=== PATIENT | male | born 1965 | race American Indian/Alaskan Native ===

== ENCOUNTER 2016-06-13 08:10 | Emergency (ER) | payer SELFPAY ==
[2016-06-13] MEDS ORDERED: ZITHROMAX PO ONE (10:33)
[2016-06-13] MEDS ORDERED: ROBITUSSIN DM PO ONE ×2 (10:34→10:40)
[2016-06-13] MEDS ORDERED: DUONEB 0.5 MG-3 MG/3 ML SOLN IH ONE (10:35)
--- NOTE | 2016-06-13 10:40 | Emergency Department Report ---
- General Chief Complaint: Upper Respiratory Infection Stated Complaint: RT SIDE PAIN/COUGH Time Seen by Provider: 06/13/16 09:28 Source: patient Mode of arrival: Ambulatory Limitations: No Limitations - Related Data Previous Rx's Medication Instructions Recorded Last Taken Type Amoxicillin/K Clav Tab [Augmentin 1 tab PO Q12HR #20 tab 11/29/15 Unknown Rx 875 mg] guaiFENesin/CODEINE [Robitussin AC] 10 ml PO QHS PRN #70 oral.liqd 11/29/15 Unknown Rx predniSONE [Deltasone] 50 mg PO QDAY #5 tab 11/29/15 Unknown Rx Allergies Allergy/AdvReac Type Severity Reaction Status Date / Time No Known Allergies Allergy Verified 11/29/15 10:47 ED Review of Systems ROS: Stated complaint: RT SIDE PAIN/COUGH Other details as noted in HPI ED Past Medical Hx - Past Medical History Previous Medical History?: Yes Hx Asthma: Yes (childhood) - Surgical History Past Surgical History?: Yes Additional Surgical History: hernia repair x 2 - Social History Smoking Status: Current Every Day Smoker Substance Use Type: None - Medications Home Medications: Home Medications Medication Instructions Recorded Confirmed Last Taken Type Amoxicillin/K Clav Tab [Augmentin 1 tab PO Q12HR #20 tab 11/29/15 Unknown Rx 875 mg] guaiFENesin/CODEINE [Robitussin AC] 10 ml PO QHS PRN #70 oral.liqd 11/29/15 Unknown Rx predniSONE [Deltasone] 50 mg PO QDAY #5 tab 11/29/15 Unknown Rx ED Physical Exam - General Limitations: No Limitations ED Course Vital Signs 06/13/16 08:17 Temperature 98.5 F Pulse Rate 69 Respiratory 20 Rate Blood Pressure 148/106 O2 Sat by Pulse 100 Oximetry Critical care attestation.: If time is entered above; I have spent that time in minutes in the direct care of this critically ill patient, excluding procedure time. ED Disposition Condition: Stable Referrals: PRIMARY CARE, [Primary Care Provider] - 3-5 Days
--- NOTE | 2016-06-13 11:03 | XRay Report ---
Chest 2 views: History: Worsening cough heavy smoker. Findings: Normal cardiomediastinal silhouette. Trachea is midline. No consolidation, pneumothorax or pleural effusion. Impression: No acute cardiopulmonary findings.
[2016-06-13 11:21] LABS: Eosinophils % (Auto) 1.6 % (0.0-4.3); Hematocrit 44.2 % (35.5-45.6); Hemoglobin 14.2 gm/dl (11.8-15.2); Mean Corpuscular HGB Conc 32 % (32-34); Mean Corpuscular Hemoglobin 29 pg (28-32); Mean Corpuscular Volume 89 fl (84-94); Platelet Count 263 K/mm3 (140-440); Red Blood Count 4.98 M/mm3 (3.65-5.03); Red Cell Distribution Width 14.1 % (13.2-15.2); White Blood Count 8.8 K/mm3 (4.5-11.0)
[2016-06-13 11:52] LABS: Anion Gap 15 mmol/L; BUN/Creatinine Ratio 11.42; Blood Urea Nitrogen 8 mg/dL (9-20); Calcium 8.7 mg/dL (8.4-10.2); Carbon Dioxide 23 mmol/L (22-30); Glucose 94 mg/dL (75-100); Potassium 4.2 mmol/L (3.6-5.0); Sodium 139 mmol/L (137-145)
--- NOTE | 2016-06-13 12:08 | Emergency Department Report ---
Entered by TOM JOHNSON, acting as scribe for AME RODRIGUEZ PA. - General Chief Complaint: Upper Respiratory Infection Stated Complaint: RT SIDE PAIN/COUGH Time Seen by Provider: 06/13/16 09:28 Source: patient Mode of arrival: Ambulatory Limitations: No Limitations - History of Present Illness Initial Comments: 51 year old male with PMHx asthma presents to the ED for evaluation of worsening persistent cough for 1 week. Patient reports associated night sweats and right lower posterior chest pain. Despite taking Robitussin and Mucinex, symptoms have persisted. Reports similar episode 2 months ago but denies Hx of pneumonia. Denies any travel outside of the country and known flu or sick contacts. 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 Endorse cigarette use. CHRIS. Complaint: cough Onset/Timin -: week(s) Consistency: constant Improves With: nothing Worsens With: nothing Context: other (no known sick contact, flu contact, or travel outside of the country) Associated Symptoms: cough, chest pain (right posterior chest pain. Denies anterior chest pain.), right sweats. denies: shortness of breath Treatments Prior to Arrival: "cold medicine" (Mucinex and Robitussin with no relief of symptoms) - Related Data Previous Rx's Medication Instructions Recorded Last Taken Type Amoxicillin/K Clav Tab [Augmentin 1 tab PO Q12HR #20 tab 11/29/15 Unknown Rx 875 mg] guaiFENesin/CODEINE [Robitussin AC] 10 ml PO QHS PRN #70 oral.liqd 11/29/15 Unknown Rx predniSONE [Deltasone] 50 mg PO QDAY #5 tab 11/29/15 Unknown Rx ALBUTEROL Inhaler [ProAir HFA 1 puff IH Q4H PRN #1 inha 06/13/16 Unknown Rx Inhaler] Azithromycin [Zithromax Z-SOULEYMANE] 250 mg PO QDAY #6 tablet 06/13/16 Unknown Rx Naproxen [Naproxen TAB] 250 mg PO BID PRN #20 tablet 06/13/16 Unknown Rx guaiFENesin DM [Robitussin Dm] 10 ml PO Q6HR PRN #1 bottle 06/13/16 Unknown Rx predniSONE [Deltasone] 40 mg PO QDAY #10 tab 06/13/16 Unknown Rx Allergies Allergy/AdvReac Type Severity Reaction Status Date / Time No Known Allergies Allergy Verified 11/29/15 10:47 ED Review of Systems Comment: All other systems reviewed and negative Constitutional: other (night sweats) Respiratory: cough. denies: shortness of breath Cardiovascular: chest pain (right posterior chest pain. No anterior chest pain.) ED Past Medical Hx - Past Medical History Previous Medical History?: Yes Hx Asthma: Yes (childhood) - Surgical History Past Surgical History?: Yes Additional Surgical History: hernia repair x 2 - Social History Smoking Status: Current Every Day Smoker Substance Use Type: None - Medications Home Medications: Home Medications Medication Instructions Recorded Confirmed Last Taken Type Amoxicillin/K Clav Tab [Augmentin 1 tab PO Q12HR #20 tab 11/29/15 Unknown Rx 875 mg] guaiFENesin/CODEINE [Robitussin AC] 10 ml PO QHS PRN #70 oral.liqd 11/29/15 Unknown Rx predniSONE [Deltasone] 50 mg PO QDAY #5 tab 11/29/15 Unknown Rx ALBUTEROL Inhaler [ProAir HFA 1 puff IH Q4H PRN #1 inha 06/13/16 Unknown Rx Inhaler] Azithromycin [Zithromax Z-SOULEYMANE] 250 mg PO QDAY #6 tablet 06/13/16 Unknown Rx Naproxen [Naproxen TAB] 250 mg PO BID PRN #20 tablet 06/13/16 Unknown Rx guaiFENesin DM [Robitussin Dm] 10 ml PO Q6HR PRN #1 bottle 06/13/16 Unknown Rx predniSONE [Deltasone] 40 mg PO QDAY #10 tab 06/13/16 Unknown Rx ED Physical Exam - General Limitations: No Limitations - Other Other exam information: General: Well nourished, in no distress. Oriented x 3, normal mood and affect. Ambulating without difficulty. Skin: Good turgor, no rash, unusual bruising or prominent lesions Hair: Normal texture and distribution. Nails: Normal color, no deformities HEENT: Head: Normocephalic, atraumatic, no visible masses, depressions, or scaring. Eyes: Conjunctiva clear, sclera non-icteric, EOM intact, PERRL, no exudates or hemorrhages Mouth: Mucous membranes moist, no mucosal lesions. Neck: Supple, without lesions, bruits, or adenopathy, thyroid non-enlarged and non-tender Heart: No cardiomegaly or thrills; regular rate and rhythm, no murmur or gallop Lungs: Rhonchi in right lower lung field. Abdomen: Bowel sounds normal, no tenderness, organomegaly, masses, or hernia Back: Spine normal without deformity or tenderness, no CVA tenderness Psychiatric: Oriented X3, intact recent and remote memory, judgment and insight , normal mood and affect. ED Course Vital Signs 06/13/16 06/13/16 08:17 10:48 Temperature 98.5 F Pulse Rate 69 Pulse Rate [ 74 Right Middle Lobe] Respiratory 20 Rate Respiratory 18 Rate [Right Middle Lobe] Blood Pressure 148/106 O2 Sat by Pulse 100 Oximetry ED Medical Decision Making - Lab Data Result diagrams: 06/13/16 10:48 06/13/16 10:48 - Medical Decision Making A/p: Acute bronchitis 1- albuterol inhaler, Z-Souleymane, short course prednisone, naproxen when necessary. Will cover patient empirically for community-acquired pneumonia/bronchitis patient is heavy smoker. PORT/PSI score low, outp pt reasonable 2- f/u with primary medical doctor ED Disposition Clinical Impression: Acute bronchitis Qualifiers: Bronchitis organism: unspecified organism Qualified Code(s): J20.9 - Acute bronchitis, unspecified Reactive airway disease Qualifiers: Asthma severity: mild intermittent Asthma complication type: uncomplicated Qualified Code(s): J45.20 - Mild intermittent asthma, uncomplicated Disposition: DISCHARGED TO HOME OR SELFCARE Is pt being admited?: No Does the pt Need Aspirin: No Condition: Stable Instructions: Acute Bronchitis (ED) Prescriptions: ALBUTEROL Inhaler [ProAir HFA Inhaler] 1 puff IH Q4H PRN #1 inha PRN Reason: Wheezing Azithromycin [Zithromax Z-SOULEYMANE] 250 mg PO QDAY #6 tablet guaiFENesin DM [Robitussin Dm] 10 ml PO Q6HR PRN #1 bottle PRN Reason: Cough Naproxen [Naproxen TAB] 250 mg PO BID PRN #20 tablet PRN Reason: Cough predniSONE [Deltasone] 40 mg PO QDAY #10 tab Referrals: GRACIELA HOWELL MD [Staff Physician] - 3-5 Days Forms: Work/School Release Form(ED) Time of Disposition: 12:05 This documentation as recorded by the scribeELIZABETH REBEKAH,accurately reflects the service I personally performed and the decisions made by ,AME RODRIGUEZ PA.
[2016-06-13 12:33] VITALS: BP 160/100
== END 2016-06-13 12:33 | disposition home or self-care (01) ==
LOC: ED 08:10
DX: J45.20 Mild intermittent asthma, uncomplicated (principal); J20.9 Acute bronchitis, unspecified; F17.200 Nicotine dependence, unspecified, uncomplicated
CPT/HCPCS: 36415; 71020; 80048; 82805; 85025

== ENCOUNTER 2016-08-21 12:33 | Emergency (ER) | payer SELFPAY ==
[2016-08-21 12:44] VITALS: BP 145/106
[2016-08-21] MEDS ORDERED: DELTASONE PO ONE (14:24)
[2016-08-21] MEDS ORDERED: NORVASC PO ONE (14:24)
[2016-08-21] MEDS ORDERED: PROVENTIL IH ONE (14:26)
--- NOTE | 2016-08-21 14:29 | Emergency Department Report ---
Entered by MIGUEL KANG, acting as scribe for FARHAT DUNCAN NP. - General Chief Complaint: Upper Respiratory Infection Stated Complaint: COUGH/BACK PAIN Source: patient Mode of arrival: Ambulatory Limitations: No Limitations - History of Present Illness Initial Comments: 51 y/o male presents to the ED c/o bronchitis that began two months ago and became worse today. Associated symptoms include cough, wheezing, rhinorrhea and back pain but he denies fever, chills, nausea and vomiting. Patient states he was seen at ED 06/13/16 for similar symptoms and he was diagnosed with bronchitis but is noncompliant with meds. No aggravating factors and no alleviating factors despite taking aspirin [employer]. Uses tobacco products. NKDA. ROSENBERG Complaint: other (Bronchitis) -: Sudden, month(s) (2 months became worse today) Severity: mild Consistency: constant Improves With: nothing Worsens With: nothing Context: other (recently moved to [place]) Associated Symptoms: other (cough, wheezing, rhinorrhea and back pain). denies : fever, chills, nausea, vomiting Treatments Prior to Arrival: Aspirin - Related Data Previous Rx's Medication Instructions Recorded Last Taken Type Amoxicillin/K Clav Tab [Augmentin 1 tab PO Q12HR #20 tab 11/29/15 Unknown Rx 875 mg] guaiFENesin/CODEINE [Robitussin AC] 10 ml PO QHS PRN #70 oral.liqd 11/29/15 Unknown Rx predniSONE [Deltasone] 50 mg PO QDAY #5 tab 11/29/15 Unknown Rx ALBUTEROL Inhaler [ProAir HFA 1 puff IH Q4H PRN #1 inha 06/13/16 Unknown Rx Inhaler] Azithromycin [Zithromax Z-TYRESE] 250 mg PO QDAY #6 tablet 06/13/16 Unknown Rx Naproxen [Naproxen TAB] 250 mg PO BID PRN #20 tablet 06/13/16 Unknown Rx amLODIPine [Norvasc] 5 mg PO DAILY #30 tab 06/13/16 Unknown Rx guaiFENesin DM [Robitussin Dm] 10 ml PO Q6HR PRN #1 bottle 06/13/16 Unknown Rx predniSONE [Deltasone] 40 mg PO QDAY #10 tab 06/13/16 Unknown Rx ALBUTEROL Inhaler [ProAir HFA 2 puff IH QID PRN #1 inhalation 08/21/16 Unknown Rx Inhaler] Azithromycin [Zithromax Z-TYRESE] 250 mg PO DAILY #6 tablet 08/21/16 Unknown Rx amLODIPine [Norvasc] 5 mg PO DAILY #90 tab 08/21/16 Unknown Rx predniSONE [Deltasone] 40 mg PO DAILY #5 tablet 08/21/16 Unknown Rx Allergies Allergy/AdvReac Type Severity Reaction Status Date / Time No Known Allergies Allergy Verified 08/21/16 12:38 ED Review of Systems Comment: All other systems reviewed and negative Constitutional: denies: chills, fever ENT: other (Rhinorrhea ) Respiratory: cough (with clear sputum), wheezing Gastrointestinal: denies: nausea, vomiting Musculoskeletal: back pain ED Past Medical Hx - Past Medical History Hx Hypertension: Yes (not taking meds) Hx Asthma: Yes (childhood) - Surgical History Additional Surgical History: hernia repair x 2 - Social History Smoking Status: Current Every Day Smoker Substance Use Type: Alcohol - Medications Home Medications: Home Medications Medication Instructions Recorded Confirmed Last Taken Type Amoxicillin/K Clav Tab [Augmentin 1 tab PO Q12HR #20 tab 11/29/15 Unknown Rx 875 mg] guaiFENesin/CODEINE [Robitussin AC] 10 ml PO QHS PRN #70 oral.liqd 11/29/15 Unknown Rx predniSONE [Deltasone] 50 mg PO QDAY #5 tab 11/29/15 Unknown Rx ALBUTEROL Inhaler [ProAir HFA 1 puff IH Q4H PRN #1 inha 06/13/16 Unknown Rx Inhaler] Azithromycin [Zithromax Z-TYRESE] 250 mg PO QDAY #6 tablet 06/13/16 Unknown Rx Naproxen [Naproxen TAB] 250 mg PO BID PRN #20 tablet 06/13/16 Unknown Rx amLODIPine [Norvasc] 5 mg PO DAILY #30 tab 06/13/16 Unknown Rx guaiFENesin DM [Robitussin Dm] 10 ml PO Q6HR PRN #1 bottle 06/13/16 Unknown Rx predniSONE [Deltasone] 40 mg PO QDAY #10 tab 06/13/16 Unknown Rx ALBUTEROL Inhaler [ProAir HFA 2 puff IH QID PRN #1 inhalation 08/21/16 Unknown Rx Inhaler] Azithromycin [Zithromax Z-TYRESE] 250 mg PO DAILY #6 tablet 08/21/16 Unknown Rx amLODIPine [Norvasc] 5 mg PO DAILY #90 tab 08/21/16 Unknown Rx predniSONE [Deltasone] 40 mg PO DAILY #5 tablet 08/21/16 Unknown Rx ED Physical Exam - General Limitations: No Limitations General appearance: alert, in no apparent distress - Head Head exam: Present: atraumatic, normocephalic - Eye Eye exam: Present: normal appearance, EOMI Pupils: Present: normal accommodation - ENT ENT exam: Present: normal exam - Neck Neck exam: Present: normal inspection, full ROM - Respiratory Respiratory exam: Present: normal lung sounds bilaterally, other (bronchitis non -compliant with medication). Absent: wheezes, rales, rhonchi, stridor, chest wall tenderness, accessory muscle use, decreased breath sounds, prolonged expiratory - Cardiovascular Cardiovascular Exam: Present: regular rate, normal rhythm, normal heart sounds, other (cough with clear sputum) - GI/Abdominal GI/Abdominal exam: Present: soft, normal bowel sounds. Absent: tenderness, guarding, rebound - Extremities Exam Extremities exam: Present: normal inspection, full ROM - Back Exam Back exam: Present: normal inspection, full ROM - Neurological Exam Neurological exam: Present: alert, oriented X3 - Psychiatric Psychiatric exam: Present: normal affect, normal mood - Skin Skin exam: Present: warm, dry, intact ED Course Vital Signs 08/21/16 12:40 Temperature 99.4 F Pulse Rate 62 Respiratory 17 Rate Blood Pressure 145/106 O2 Sat by Pulse 99 Oximetry ED Medical Decision Making - Medical Decision Making pt is a 51 y/o aam with hx bronchitis and 40 pack yr smoker who returns for 3rd time in as many months for noc wheezing and cough productive clear , pt advises unable to afford medications so he did not fill rx for prednisone and albuterol , exam today pt appears well nad , Nose: no obstruction bilat turbinate edema no obstruction clear post nasal drip , phayrnx: moderate erythema no exudate no lesions uvuila midline airway is patent, lungs clear bilat all lobes no wheezing , cv: S1 and S2 no MRG no edema no pnd, pt endorses noc fever no fever noted at this time, plan rx medications as previously ordered, pt will reprort to [facility] as he has connect to [facility] for $4.00 rx which he can afford, will rx amlodipine as previously ordered pt will leaf size picker from [facility] as it is free of charge pt will affiliate with [facility] for pcp affiliation , pt verbalized understanding and agreement with discharge plan is a /o x 3 ambulatory gait steady no sob no cp no wheezing at this time. htn episode pt has not take amlodipine 5 mg po today pt denies headache no dizziness no cp no sob no light headedness pt is ambulatory gait steady with nad. ED Disposition Clinical Impression: Acute bronchitis Disposition: TO HOME OR SELFCARE Is pt being admited?: No Does the pt Need Aspirin: No Condition: Good Instructions: Acute Bronchitis (ED) Prescriptions: ALBUTEROL Inhaler [ProAir HFA Inhaler] 2 puff IH QID PRN #1 inhalation PRN Reason: Shortness Of Breath Azithromycin [Zithromax Z-TYRESE] 250 mg PO DAILY #6 tablet predniSONE [Deltasone] 40 mg PO DAILY #5 tablet Referrals: PRIMARY CARE, [Primary Care Provider] - 3-5 Days Forms: Work/School Release Form(ED) Time of Disposition: 14:28 This documentation as recorded by the PEARL plummer ELIZABETH,accurately reflects the service I personally performed and the decisions made by me, FARHAT DUNCAN NP.
== END 2016-08-21 14:55 | disposition home or self-care (01) ==
LOC: ED 12:33
DX: J20.9 Acute bronchitis, unspecified (principal); I10 Essential (primary) hypertension; J45.909 Unspecified asthma, uncomplicated; M54.9 Dorsalgia, unspecified; F17.200 Nicotine dependence, unspecified, uncomplicated
CPT/HCPCS: 99283; J7512

== ENCOUNTER 2018-06-26 14:22 | Emergency (ER) | payer OTHER ==
[2018-06-26 15:37] LABS: Basophils % (Auto) 0.8 % (0.0-1.8); Eosinophils # (Auto) 0.1 K/mm3 (0.0-0.4); Hemoglobin 14.4 gm/dl (11.8-15.2); Lymphocytes # (Auto) 1.9 K/mm3 (1.2-5.4); Lymphocytes % (Auto) 32.9 % (13.4-35.0); Mean Corpuscular HGB Conc 34 % (32-34); Mean Corpuscular Volume 90 fl (84-94); Monocytes # (Auto) 0.5 K/mm3 (0.0-0.8); Monocytes % (Auto) 9.1 % (0.0-7.3); Platelet Count 237 K/mm3 (140-440); Red Cell Distribution Width 14.1 % (13.2-15.2)
[2018-06-26 15:46] LABS: Bilirubin,Urine NEG (Negative); Blood,Urine NEG (Negative); Color,Urine Yellow (Yellow); Mucus,Urine FEW /HPF; Protein,Urine <15 mg/dL mg/dL (Negative)
[2018-06-26 15:46] LABS: BUN/Creatinine Ratio 12; Blood Urea Nitrogen 13 mg/dL (9-20); Calcium 9.1 mg/dL (8.4-10.2); Hemolysis Index 6
[2018-06-26 15:50] LABS: Amphetamine Screen,Urine PRESUMPTIVE NEGATIVE; Benzodiazepines Screen,Urine PRESUMPTIVE NEGATIVE; Methadone Screen,Urine PRESUMPTIVE NEGATIVE; Opiate Screen,Urine PRESUMPTIVE NEGATIVE
[2018-06-26 16:05] LABS: Cannabinoid Screen,Urine PRESUMPTIVE POSITIVE; Cocaine Screen,Urine PRESUMPTIVE POSITIVE
--- NOTE | 2018-06-26 19:49 | Emergency Department Report ---
Chief Complaint: Alcohol Stated Complaint: DRUG TREATMENT EVALUATION Time Seen by Provider: 06/26/18 19:48 - HPI History of Present Illness: polysub use etoh/ cocaine/ thc last use last pm no si no hi requesting detox to [facility] for eval mse completed - Exam Vital Signs: Vital Signs 06/26/18 15:10 Temperature 98.3 F Pulse Rate 79 Respiratory 98 H Rate Blood Pressure 123/86 MSE screening note: Focused history and physical exam performed. Due to findings the following was ordered: ED Medical Decision Making - Lab Data Result diagrams: 06/26/18 15:16 06/26/18 15:16 ED Disposition for MSE Condition: Stable Referrals: JEFF COLLAZO MD [Primary Care Provider] - 3-5 Days
--- NOTE | 2018-06-26 20:53 | Emergency Department Report ---
HPI - General Chief Complaint: Alcohol Time Seen by Provider: 06/26/18 19:48 - HPI HPI: 53 yo AA Luis presents to the ED with the request for detox and rehab from crack cocaine use. He last used last night. He denies any physical complaints at this time or signs of withdrawal. He says that he has attempted to do rehabilitation and detox one time before when he was in [place]. He just moved here. He sometimes will occasionally use marijuana and drink alcohol but his main complaint is the crack cocaine use. ED Past Medical Hx - Past Medical History Hx Hypertension: Yes (not taking meds) Hx Asthma: Yes (childhood) - Surgical History Additional Surgical History: hernia repair x 2 - Social History Smoking Status: Never Smoker Substance Use Type: Alcohol, Cocaine, Marijuana - Medications Home Medications: Home Medications Medication Instructions Recorded Confirmed Last Taken Type Amoxicillin/K Clav Tab [Augmentin 1 tab PO Q12HR #20 tab 11/29/15 Unknown Rx 875 mg] guaiFENesin/CODEINE [Robitussin AC] 10 ml PO QHS PRN #70 oral.liqd 11/29/15 Unknown Rx predniSONE [Deltasone] 50 mg PO QDAY #5 tab 11/29/15 Unknown Rx ALBUTEROL Inhaler (OR & NICU) 1 puff IH Q4H PRN #1 inha 06/13/16 Unknown Rx [ProAir HFA Inhaler] Azithromycin [Zithromax Z-TYRESE] 250 mg PO QDAY #6 tablet 06/13/16 Unknown Rx Naproxen [Naproxen TAB] 250 mg PO BID PRN #20 tablet 06/13/16 Unknown Rx amLODIPine [Norvasc] 5 mg PO DAILY #30 tab 06/13/16 Unknown Rx guaiFENesin DM [Robitussin Dm] 10 ml PO Q6HR PRN #1 bottle 06/13/16 Unknown Rx predniSONE [Deltasone] 40 mg PO QDAY #10 tab 06/13/16 Unknown Rx ALBUTEROL Inhaler (OR & NICU) 2 puff IH QID PRN #1 inhalation 08/21/16 Unknown Rx [ProAir HFA Inhaler] Azithromycin [Zithromax Z-TYRESE] 250 mg PO DAILY #6 tablet 08/21/16 Unknown Rx amLODIPine [Norvasc] 5 mg PO DAILY #90 tab 08/21/16 Unknown Rx predniSONE [Deltasone] 40 mg PO DAILY #5 tablet 08/21/16 Unknown Rx ED Review of Systems ROS: Stated complaint: DRUG TREATMENT EVALUATION Other details as noted in HPI Comment: All other systems reviewed and negative Constitutional: denies: chills, fever Eyes: denies: eye pain, vision change ENT: denies: ear pain, throat pain Respiratory: denies: cough, shortness of breath Cardiovascular: denies: chest pain, palpitations Gastrointestinal: denies: abdominal pain, vomiting Genitourinary: denies: dysuria, discharge Musculoskeletal: denies: back pain, arthralgia Skin: denies: rash, lesions Neurological: denies: headache, weakness Physical Exam - Physical Exam Vital Signs: Vital Signs 06/26/18 15:10 Temperature 98.3 F Pulse Rate 79 Respiratory 98 H Rate Blood Pressure 123/86 Physical Exam: GENERAL: The patient is well-developed well-nourished. HEENT: Normocephalic. Atraumatic. Patient has moist mucous membranes. EYES: Extraocular motions are intact. NECK: Supple. Trachea is midline. CHEST/LUNGS: Clear to auscultation. There is no respiratory distress noted. HEART/CARDIOVASCULAR: Regular. There is no tachycardia. There is no obvious murmur. ABDOMEN: There is no abdominal distention. SKIN: Skin is warm and dry. NEURO: The patient is awake, alert, and oriented. The patient is cooperative. The patient has no focal neurologic deficits. The patient has normal speech. MUSCULOSKELETAL: There is no tenderness or deformity. There is no limitation range of motion. There is no evidence of acute injury. ED Course Vital Signs 06/26/18 15:10 Temperature 98.3 F Pulse Rate 79 Respiratory 98 H Rate Blood Pressure 123/86 ED Medical Decision Making - Lab Data Result diagrams: 06/26/18 15:16 06/26/18 15:16 - Medical Decision Making This patient presents to the emergency department for assistance with detox and rehabilitation from crack cocaine use/abuse. He does not appear currently in toxicated. Urine drug screen is positive for cocaine and marijuana. Negative for blood alcohol level. The rest of his labs are unremarkable. He has no physical complaints at this time and no signs of any withdrawal symptoms. Vital signs stable throughout his ED course. He was seen by the psychiatric administrator of home health who agrees that he does not appear to meet criteria for inpatient psychiatric treatment and does not require a 1013. He will be referred to [facility]. - Differential Diagnosis substance abuse, withdrawal Critical Care Time: No Critical care attestation.: If time is entered above; I have spent that time in minutes in the direct care of this critically ill patient, excluding procedure time. ED Disposition Clinical Impression: Medical clearance for psychiatric admission, Crack cocaine use Disposition: DC-01 TO HOME OR SELFCARE Is pt being admited?: No Condition: Stable Instructions: Cocaine Abuse (ED) Additional Instructions: Please follow up as soon as possible with [facility], the referral that you have been given by the psychiatric administrator of home health. I am also giving you a referral for the [facility] facility. Return to the emergency Department with any worsening of your symptoms or any acute distress. Referrals: [facility] [Outside] - [place]
[2018-06-28 18:00] VITALS: BP 138/65
== END 2018-06-26 21:22 | disposition home or self-care (01) ==
LOC: ED 14:22
DX: F14.90 Cocaine use, unspecified, uncomplicated (principal); I10 Essential (primary) hypertension; J45.909 Unspecified asthma, uncomplicated; F12.10 Cannabis abuse, uncomplicated
CPT/HCPCS: 36415; 80048; 80307; 81001; 85025; 99284; G0480; 80320

== ENCOUNTER 2018-09-30 11:11 | Emergency (ER) | payer SELFPAY ==
[2018-09-30 11:24] VITALS: BP 143/100
== END 2018-09-30 13:14 | disposition left against medical advice (07) ==
LOC: ED 11:11
DX: I10 Essential (primary) hypertension (principal); Z53.21 Procedure and treatment not carried out due to patient leaving prior to being seen by health care provider

== ENCOUNTER 2019-06-03 02:54 | Emergency (ER) | payer SELFPAY ==
[2019-06-03 03:09] VITALS: BP 152/103
[2019-06-03] MEDS ORDERED: predniSONE 20 MG TAB PO ONE (07:35)
[2019-06-03] MEDS ORDERED: PENICILLIN G BENZATHINE 1.2 MILLION UNIT/2 ML INJ IM ONE (07:35)
--- NOTE | 2019-06-03 07:43 | Emergency Department Report ---
ED ENT HPI - General Chief complaint: Sore Throat Stated complaint: SORE THROAT Time Seen by Provider: 06/03/19 07:21 Source: patient Mode of arrival: Ambulatory Limitations: No Limitations - History of Present Illness Initial comments: Patient is a 54-year-old male who presents to ED complaining of throat pain 3 days. Patient describes pain as throbbing in nature, 8 out of 10 intensity, nonradiating, localized to his throat. Admits pain with swallowing and eating. Patient admits reduced appetite due to throat pain. Patient admits fever and states that he has been taking outsource [place] cold with no relief Patient denies nausea/vomiting/abdominal pain/shortness of breath/chest pain/headache. t complaint: sore throat Severity: moderate Severity scale (0 -10): 8 Quality: aching - Related Data Previous Rx's Medication Instructions Recorded Last Taken Type Amoxicillin/K Clav Tab [Augmentin 1 tab PO Q12HR #20 tab 11/29/15 Unknown Rx 875 mg] guaiFENesin/CODEINE [Robitussin AC] 10 ml PO QHS PRN #70 oral.liqd 11/29/15 Unknown Rx predniSONE [Deltasone] 50 mg PO QDAY #5 tab 11/29/15 Unknown Rx Albuterol INH(or & Nicu Only) 1 puff IH Q4H PRN #1 inha 06/13/16 Unknown Rx [ProAir HFA Inhaler] Azithromycin [Zithromax Z-TYRESE] 250 mg PO QDAY #6 tablet 06/13/16 Unknown Rx Naproxen [Naproxen TAB] 250 mg PO BID PRN #20 tablet 06/13/16 Unknown Rx amLODIPine 5 mg PO DAILY #30 tab 06/13/16 Unknown Rx guaiFENesin DM [Robitussin Dm] 10 ml PO Q6HR PRN #1 bottle 06/13/16 Unknown Rx predniSONE [Deltasone] 40 mg PO QDAY #10 tab 06/13/16 Unknown Rx Albuterol INH(or & Nicu Only) 2 puff IH QID PRN #1 inhalation 08/21/16 Unknown Rx [ProAir HFA Inhaler] Azithromycin [Zithromax Z-TYRESE] 250 mg PO DAILY #6 tablet 08/21/16 Unknown Rx amLODIPine 5 mg PO DAILY #90 tab 08/21/16 Unknown Rx predniSONE [Deltasone] 40 mg PO DAILY #5 tablet 08/21/16 Unknown Rx Ibuprofen [Motrin 800 MG tab] 800 mg PO Q8HR PRN #30 tablet 06/03/19 Unknown Rx Nystas/Diphen/Xyl Visc/Mylanta 15 ml MM Q6H PRN #120 ml 06/03/19 Unknown Rx [Magic Mouthwash] Allergies Allergy/AdvReac Type Severity Reaction Status Date / Time No Known Allergies Allergy Verified 09/30/18 11:12 ED Dental HPI - General Chief complaint: Sore Throat Stated complaint: SORE THROAT Time Seen by Provider: 06/03/19 07:21 Source: patient Mode of arrival: Ambulatory Limitations: No Limitations - Related Data Previous Rx's Medication Instructions Recorded Last Taken Type Amoxicillin/K Clav Tab [Augmentin 1 tab PO Q12HR #20 tab 11/29/15 Unknown Rx 875 mg] guaiFENesin/CODEINE [Robitussin AC] 10 ml PO QHS PRN #70 oral.liqd 11/29/15 Unknown Rx predniSONE [Deltasone] 50 mg PO QDAY #5 tab 11/29/15 Unknown Rx Albuterol INH(or & Nicu Only) 1 puff IH Q4H PRN #1 inha 06/13/16 Unknown Rx [ProAir HFA Inhaler] Azithromycin [Zithromax Z-TYRESE] 250 mg PO QDAY #6 tablet 06/13/16 Unknown Rx Naproxen [Naproxen TAB] 250 mg PO BID PRN #20 tablet 06/13/16 Unknown Rx amLODIPine 5 mg PO DAILY #30 tab 06/13/16 Unknown Rx guaiFENesin DM [Robitussin Dm] 10 ml PO Q6HR PRN #1 bottle 06/13/16 Unknown Rx predniSONE [Deltasone] 40 mg PO QDAY #10 tab 06/13/16 Unknown Rx Albuterol INH(or & Nicu Only) 2 puff IH QID PRN #1 inhalation 08/21/16 Unknown Rx [ProAir HFA Inhaler] Azithromycin [Zithromax Z-TYRESE] 250 mg PO DAILY #6 tablet 08/21/16 Unknown Rx amLODIPine 5 mg PO DAILY #90 tab 08/21/16 Unknown Rx predniSONE [Deltasone] 40 mg PO DAILY #5 tablet 08/21/16 Unknown Rx Ibuprofen [Motrin 800 MG tab] 800 mg PO Q8HR PRN #30 tablet 06/03/19 Unknown Rx Nystas/Diphen/Xyl Visc/Mylanta 15 ml MM Q6H PRN #120 ml 06/03/19 Unknown Rx [Magic Mouthwash] Allergies Allergy/AdvReac Type Severity Reaction Status Date / Time No Known Allergies Allergy Verified 09/30/18 11:12 ED Review of Systems ROS: Stated complaint: SORE THROAT Other details as noted in HPI Comment: All other systems reviewed and negative ED Past Medical Hx - Past Medical History Previous Medical History?: Yes Hx Hypertension: Yes (not taking meds) Hx Asthma: Yes (childhood) - Surgical History Past Surgical History?: Yes Additional Surgical History: hernia repair x 2 - Social History Smoking Status: Current Every Day Smoker Substance Use Type: None - Medications Home Medications: Home Medications Medication Instructions Recorded Confirmed Last Taken Type Amoxicillin/K Clav Tab [Augmentin 1 tab PO Q12HR #20 tab 11/29/15 Unknown Rx 875 mg] guaiFENesin/CODEINE [Robitussin AC] 10 ml PO QHS PRN #70 oral.liqd 11/29/15 Unknown Rx predniSONE [Deltasone] 50 mg PO QDAY #5 tab 11/29/15 Unknown Rx Albuterol INH(or & Nicu Only) 1 puff IH Q4H PRN #1 inha 06/13/16 Unknown Rx [ProAir HFA Inhaler] Azithromycin [Zithromax Z-TYRESE] 250 mg PO QDAY #6 tablet 06/13/16 Unknown Rx Naproxen [Naproxen TAB] 250 mg PO BID PRN #20 tablet 06/13/16 Unknown Rx amLODIPine 5 mg PO DAILY #30 tab 06/13/16 Unknown Rx guaiFENesin DM [Robitussin Dm] 10 ml PO Q6HR PRN #1 bottle 06/13/16 Unknown Rx predniSONE [Deltasone] 40 mg PO QDAY #10 tab 06/13/16 Unknown Rx Albuterol INH(or & Nicu Only) 2 puff IH QID PRN #1 inhalation 08/21/16 Unknown Rx [ProAir HFA Inhaler] Azithromycin [Zithromax Z-TYRESE] 250 mg PO DAILY #6 tablet 08/21/16 Unknown Rx amLODIPine 5 mg PO DAILY #90 tab 08/21/16 Unknown Rx predniSONE [Deltasone] 40 mg PO DAILY #5 tablet 08/21/16 Unknown Rx Ibuprofen [Motrin 800 MG tab] 800 mg PO Q8HR PRN #30 tablet 06/03/19 Unknown Rx Nystas/Diphen/Xyl Visc/Mylanta 15 ml MM Q6H PRN #120 ml 06/03/19 Unknown Rx [Magic Mouthwash] ED Physical Exam - General Limitations: No Limitations General appearance: alert, in no apparent distress - Head Head exam: Present: atraumatic, normocephalic - Eye Eye exam: Present: normal appearance - ENT ENT exam: Present: mucous membranes moist - Expanded ENT Exam Expanded Mouth exam: Present: normal external inspection Teeth exam: Present: normal inspection Throat exam: Positive: tonsillar erythema, tonsillomegaly, tonsillar exudate - Neck Neck exam: Present: normal inspection, full ROM, lymphadenopathy. Absent: tenderness - Respiratory Respiratory exam: Present: normal lung sounds bilaterally. Absent: respiratory distress - Cardiovascular Cardiovascular Exam: Present: regular rate, normal rhythm. Absent: systolic murmur, diastolic murmur, rubs, gallop - GI/Abdominal GI/Abdominal exam: Present: soft, normal bowel sounds - Rectal Rectal exam: Present: deferred - Extremities Exam Extremities exam: Present: normal inspection - Back Exam Back exam: Present: normal inspection - Neurological Exam Neurological exam: Present: alert, oriented X3 - Psychiatric Psychiatric exam: Present: normal affect, normal mood - Skin Skin exam: Present: warm, dry, intact, normal color. Absent: rash ED Course Vital Signs 06/03/19 03:07 Temperature 100.7 F H Pulse Rate 77 Respiratory 20 Rate Blood Pressure 152/103 O2 Sat by Pulse 96 Oximetry ED Medical Decision Making - Medical Decision Making 54-year-old male presents with strep pharyngitis. ED course: Rapid strep tests ordered rapid strep test positive Patient received 1 dose of Tylenol, 1.2 million units of penicillin, 60 mg of prednisone. Fever responsive to one dose of Tylenol. Vital signs stable patient is in no acute or respiratory distress. Discussed findings with patient about the positive strep. Discussed treatment in ED with patient Discussed the patient that strep throat is contagious and to limit sharing spoons and such. Discussed with patient follow-up with primary care physician. Patient verbally states he understands and will comply to follow-up. Critical care attestation.: If time is entered above; I have spent that time in minutes in the direct care of this critically ill patient, excluding procedure time. ED Disposition Clinical Impression: Streptococcal pharyngitis, Acute bacterial tonsillitis Disposition: TO HOME OR SELFCARE Is pt being admited?: No Does the pt Need Aspirin: No Condition: Stable Instructions: Strep Throat (ED), Tonsillitis (ED) Additional Instructions: Make sure to follow up with the primary care physician as discussed. Take all your medications as you've been prescribed. If you have any worsening symptoms or develop new symptoms please return to ED immediately. Referrals: PRIMARY CARE, [Primary Care Provider] - 3-5 Days [facility] [Outside] - 3-5 Days [facility] [Outside] - 3-5 Days Forms: Work/School Release Form(ED) Time of Disposition: 07:45
== END 2019-06-03 08:39 | disposition home or self-care (01) ==
LOC: ED 02:54
DX: J02.0 Streptococcal pharyngitis (principal); I10 Essential (primary) hypertension; J45.909 Unspecified asthma, uncomplicated; F17.200 Nicotine dependence, unspecified, uncomplicated; Z79.899 Other long term (current) drug therapy; Z98.890 Other specified postprocedural states
CPT/HCPCS: 87430; 96372; 99283; J0561; J7512

== ENCOUNTER 2020-06-14 09:05 | Emergency (ER) | payer SELFPAY ==
[2020-06-14 09:12] VITALS: BP 138/91
--- NOTE | 2020-06-14 12:08 | XRay Report ---
XR chest routine 2V INDICATION / CLINICAL INFORMATION: sob and cp. COMPARISON: 03/03/2018 FINDINGS: SUPPORT DEVICES: None. HEART /PULMONARY VASCULATURE: No significant abnormality. LUNGS / PLEURA: No significant pulmonary or pleural abnormality. No pneumothorax. ADDITIONAL FINDINGS: No significant additional findings. IMPRESSION: 1. No acute findings. Signer Name: Kalia Sandoval MD Signed: 06/14/2020 12:04 PM Workstation Name: [id number]
--- NOTE | 2020-06-14 12:50 | Emergency Department Report ---
ED General Adult HPI - General Chief complaint: Upper Respiratory Infection Stated complaint: HEAD COLD Time Seen by Provider: 06/14/20 10:04 Source: patient Mode of arrival: Ambulatory Limitations: No Limitations - History of Present Illness Initial comments: 55-year-old -[place] male avid tobacco smoker presents emerged department complaining of a couple day history of cough congestion coryza resulting in occasional mucus production and coryza. Was at work coughing on the job was advised to come to the emergency department to get evaluated. Reports no hemoptysis, no hematemesis hematochezia, no fever, chills, sweats. No diarrhea no nausea, no vomiting. Reports no known contact with a -: Gradual Radiation: non-radiation Consistency: constant Improves with: none Worsens with: none Associated Symptoms: denies other symptoms Treatments Prior to Arrival: none - Related Data Previous Rx's Medication Instructions Recorded Last Taken Type Amoxicillin/K Clav Tab [Augmentin 1 tab PO Q12HR #20 tab 11/29/15 Unknown Rx 875 mg] guaiFENesin/CODEINE [Robitussin AC] 10 ml PO QHS PRN #70 oral.liqd 11/29/15 Unk nown Rx predniSONE [Deltasone] 50 mg PO QDAY #5 tab 11/29/15 Unknown Rx Albuterol Mdi (or & Nicu Only) 1 puff IH Q4H PRN #1 inha 06/13/16 Unknown Rx [ProAir HFA Inhaler] Azithromycin [Zithromax Z-TYRESE] 250 mg PO QDAY #6 tablet 06/13/16 Unknown Rx Naproxen [Naproxen TAB] 250 mg PO BID PRN #20 tablet 06/13/16 Unknown Rx amLODIPine 5 mg PO DAILY #30 tab 06/13/16 Unknown Rx guaiFENesin DM [Robitussin Dm] 10 ml PO Q6HR PRN #1 bottle 06/13/16 Unknown Rx predniSONE [Deltasone] 40 mg PO QDAY #10 tab 06/13/16 Unknown Rx Albuterol Mdi (or & Nicu Only) 2 puff IH QID PRN #1 inhalation 08/21/16 Unknown Rx [ProAir HFA Inhaler] Azithromycin [Zithromax Z-TYRESE] 250 mg PO DAILY #6 tablet 08/21/16 Unknown Rx amLODIPine 5 mg PO DAILY #90 tab 08/21/16 Unknown Rx predniSONE [Deltasone] 40 mg PO DAILY #5 tablet 08/21/16 Unknown Rx Ibuprofen [Motrin 800 MG tab] 800 mg PO Q8HR PRN #30 tablet 06/03/19 Unknown Rx Nystas/Diphen/Xyl Visc/Mylanta 15 ml MM Q6H PRN #120 ml 06/03/19 Unknown Rx [Magic Mouthwash] Albuterol Mdi (or & Nicu Only) 1 puff IH QID PRN #8.5 gram 06/14/20 Unknown Rx [ProAir HFA Inhaler] Benzonatate [Tessalon Perles] 100 mg PO Q8HR #14 capsule 06/14/20 Unknown Rx Allergies Allergy/AdvReac Type Severity Reaction Status Date / Time No Known Allergies Allergy Verified 09/30/18 11:12 ED Review of Systems ROS: Stated complaint: HEAD COLD Other details as noted in HPI Comment: All other systems reviewed and negative ED Past Medical Hx - Past Medical History Previous Medical History?: Yes Hx Hypertension: Yes Hx Asthma: Yes (childhood) - Surgical History Past Surgical History?: Yes Additional Surgical History: hernia repair x 2 - Social History Smoking Status: Current Every Day Smoker Substance Use Type: None - Medications Home Medications: Home Medications Medication Instructions Recorded Confirmed Last Taken Type Amoxicillin/K Clav Tab [Augmentin 1 tab PO Q12HR #20 tab 11/29/15 Unknown Rx 875 mg] guaiFENesin/CODEINE [Robitussin AC] 10 ml PO QHS PRN #70 oral.liqd 11/29/15 Unknown Rx predniSONE [Deltasone] 50 mg PO QDAY #5 tab 11/29/15 Unknown Rx Albuterol Mdi (or & Nicu Only) 1 puff IH Q4H PRN #1 inha 06/13/16 Unknown Rx [ProAir HFA Inhaler] Azithromycin [Zithromax Z-TYRESE] 250 mg PO QDAY #6 tablet 06/13/16 Unknown Rx Naproxen [Naproxen TAB] 250 mg PO BID PRN #20 tablet 06/13/16 Unknown Rx amLODIPine 5 mg PO DAILY #30 tab 06/13/16 Unknown Rx guaiFENesin DM [Robitussin Dm] 10 ml PO Q6HR PRN #1 bottle 06/13/16 Unknown Rx predniSONE [Deltasone] 40 mg PO QDAY #10 tab 06/13/16 Unknown Rx Albuterol Mdi (or & Nicu Only) 2 puff IH QID PRN #1 inhalation 08/21/16 Unknown Rx [ProAir HFA Inhaler] Azithromycin [Zithromax Z-TYRESE] 250 mg PO DAILY #6 tablet 08/21/16 Unknown Rx amLODIPine 5 mg PO DAILY #90 tab 08/21/16 Unknown Rx predniSONE [Deltasone] 40 mg PO DAILY #5 tablet 08/21/16 Unknown Rx Ibuprofen [Motrin 800 MG tab] 800 mg PO Q8HR PRN #30 tablet 06/03/19 Unknown Rx Nystas/Diphen/Xyl Visc/Mylanta 15 ml MM Q6H PRN #120 ml 06/03/19 Unknown Rx [Magic Mouthwash] Albuterol Mdi (or & Nicu Only) 1 puff IH QID PRN #8.5 gram 06/14/20 Unknown Rx [ProAir HFA Inhaler] Benzonatate [Tessalon Perles] 100 mg PO Q8HR #14 capsule 06/14/20 Unknown Rx ED Physical Exam - General Limitations: No Limitations General appearance: alert, in no apparent distress - Head Head exam: Present: atraumatic, normocephalic - Eye Eye exam: Present: normal appearance, PERRL, EOMI Pupils: Present: normal accommodation - ENT ENT exam: Present: normal exam, mucous membranes moist - Neck Neck exam: Present: normal inspection, full ROM - Respiratory Respiratory exam: Present: normal lung sounds bilaterally, rhonchi (To the left lower lobe.). Absent: respiratory distress, wheezes, rales - Cardiovascular Cardiovascular Exam: Present: regular rate, normal rhythm. Absent: bradycardia, tachycardia, systolic murmur, diastolic murmur, rubs, gallop - GI/Abdominal GI/Abdominal exam: Present: soft, normal bowel sounds - Rectal Rectal exam: Present: deferred - Extremities Exam Extremities exam: Present: normal inspection, normal capillary refill - Back Exam Back exam: Present: normal inspection. Absent: CVA tenderness (R), CVA tenderness (L) - Neurological Exam Neurological exam: Present: alert, oriented X3, CN II-XII intact - Psychiatric Psychiatric exam: Present: normal affect, normal mood. Absent: agitated, anxious - Skin Skin exam: Present: warm, dry, intact, normal color. Absent: rash, cyanosis, diaphoretic ED Course Vital Signs 06/14/20 09:08 Temperature 98.4 F Pulse Rate 72 Respiratory 16 Rate Blood Pressure 138/91 O2 Sat by Pulse 98 Oximetry ED Medical Decision Making - Radiology Data Radiology results: report reviewed [address] [place] [address] XRay Report Signed Patient: GASTON HENSLEY MR#: [id number] : 1965 Acct:[id number] Age/Sex: 55 / M ADM Date: 06/14/20 Loc: ED Attending Dr: Ordering Physician: MICHELA VALADEZ Date of Service: 06/14/20 Procedure(s): XR chest routine 2V Accession Number(s): [id number] cc: MICHELA VALADEZ Fluoro Time In Minutes: XR chest routine 2V INDICATION / CLINICAL INFORMATION: sob and cp. COMPARISON: 03/03/2018 FINDINGS: SUPPORT DEVICES: None. HEART /PULMONARY VASCULATURE: No significant abnormality. LUNGS / PLEURA: No significant pulmonary or pleural abnormality. No pneumothorax. ADDITIONAL FINDINGS: No significant additional findings. IMPRESSION: 1. No acute findings. Signer Name: Marcella Sandoval MD Signed: 06/14/2020 12:04 PM Workstation Name: [id number] Transcribed By: JADIEL Dictated By: MARCELLA SANDOVAL MD Electronically Authenticated By: MARCELLA SANDOVAL MD Signed Date/Time: 06/14/20 1204 DD/ 1203 TD/TT: Print Cancel - Medical Decision Making This patient presents with acute cough, most consistent with bronchitis. Differential diagnosis includes pneumonia, bronchitis, asthma. Presentation not consistent with acute bacterial pneumonia, influenza, asthma, transient airway hyperresponsiveness. This patient presents with symptoms suspicious for likely viral upper respiratory tract infection. Differential includes bacterial pneumonia, sinusitis, allergic rhinitis,. Do not suspect underlying Cardiopulmonary process. I considered but think unlikely dangerous cause of this patient symptoms to include acute coronary syndrome, CHF or COPD exacerbations, pneumonia, pneumothorax. Patient is nontoxic appearing and not in need of emergent medical intervention. Presentation not consistent with chronic causes of cough (including GERD, asthma, postnasal discharge, medication side effect, CHF, lung cancer or mass). Chest x-ray is clear Plan: Plan is for supportive care and [id number] medications with the addition of inhaler and steroid. Discussed with patient the need for smoking cessation we did discuss smoking cessation for 8 minutes. Been advised to follow-up with primary care provider or the listed provider for reevaluation and follow-up. Critical care attestation.: If time is entered above; I have spent that time in minutes in the direct care of this critically ill patient, excluding procedure time. ED Disposition Clinical Impression: Acute bronchitis Disposition: TO HOME OR SELFCARE Is pt being admited?: No Does the pt Need Aspirin: No Condition: Stable Instructions: Acute Bronchitis, Adult, [id number], Acute Bronchitis (ED) Prescriptions: Albuterol Mdi (or & Nicu Only) [ProAir HFA Inhaler] 1 puff IH QID PRN #8.5 gram PRN Reason: sob Benzonatate [Tessalon Perles] 100 mg PO Q8HR #14 capsule Referrals: [facility] [Provider Group] - 3-5 Days PRIMARY CARE, [Primary Care Provider] - 3-5 Days Forms: Work/School Release Form(ED)
== END 2020-06-14 13:22 | disposition home or self-care (01) ==
LOC: ED 09:05
DX: J20.9 Acute bronchitis, unspecified (principal); I10 Essential (primary) hypertension; Z79.899 Other long term (current) drug therapy; F17.200 Nicotine dependence, unspecified, uncomplicated
CPT/HCPCS: 71046; 99283

== ENCOUNTER 2020-07-05 09:08 | Emergency (ER) | payer SELFPAY ==
[2020-07-05 11:13] VITALS: BP 123/90
--- NOTE | 2020-07-05 11:17 | Emergency Department Report ---
- General Chief Complaint: Upper Respiratory Infection Stated Complaint: NOT FEELING WELL Time Seen by Provider: 07/05/20 10:02 Source: patient Mode of arrival: Ambulatory Limitations: No Limitations - History of Present Illness Initial Comments: 55-year-old male past medical history of childhood asthma, hypertension and tobacco use presents to the ER today with complaints of URI symptoms. Patient states that last night he started with a dry cough and right ear pain. Patient states that he took TheraFlu last night, felt better and went to work but was at work it told him that he appeared groggy and recommend that he come to the ER to get checked out. He states that he did take the TheraFlu late last night and it did make him sleepy but currently he feels fine. He denies any associated chest pain, shortness of breath, wheezing, rhinorrhea, nasal congestion, sore throat, fever or chills. He denies any GI or symptoms. MD Complaint: cough -: Gradual (last night ) - Related Data Previous Rx's Medication Instructions Recorded Last Taken Type amLODIPine 5 mg PO DAILY #30 tab 06/13/16 Unknown Rx amLODIPine 5 mg PO DAILY #90 tab 08/21/16 Unknown Rx Allergies Allergy/AdvReac Type Severity Reaction Status Date / Time No Known Allergies Allergy Verified 09/30/18 11:12 ED Review of Systems ROS: Stated complaint: NOT FEELING WELL Other details as noted in HPI Comment: All other systems reviewed and negative Constitutional: denies: chills, diaphoresis, fever, malaise, weakness Eyes: denies: eye pain, eye discharge, vision change ENT: ear pain. denies: throat pain, dental pain, hearing loss, congestion Respiratory: cough. denies: shortness of breath, SOB with exertion, SOB at rest, stridor, wheezing Cardiovascular: denies: chest pain, palpitations, dyspnea on exertion, edema, syncope Gastrointestinal: denies: abdominal pain, nausea, diarrhea, constipation, hematemesis Genitourinary: denies: urgency, dysuria, frequency, hematuria, discharge, testicular pain, testicular mass Musculoskeletal: as per HPI. denies: joint swelling Skin: denies: rash, lesions Neurological: denies: headache, weakness, numbness, paresthesias, confusion, abnormal gait, vertigo Psychiatric: denies: anxiety, depression Hematological/Lymphatic: denies: easy bleeding, easy bruising ED Past Medical Hx - Past Medical History Previous Medical History?: Yes Hx Hypertension: Yes Hx Asthma: Yes - Surgical History Past Surgical History?: Yes Additional Surgical History: hernia repair x 2 - Social History Smoking Status: Current Every Day Smoker Substance Use Type: None - Medications Home Medications: Home Medications Medication Instructions Recorded Confirmed Last Taken Type amLODIPine 5 mg PO DAILY #30 tab 06/13/16 Unknown Rx amLODIPine 5 mg PO DAILY #90 tab 08/21/16 Unknown Rx ED Physical Exam - General Limitations: No Limitations General appearance: alert, in no apparent distress - Head Head exam: Present: atraumatic, normocephalic, normal inspection - Eye Eye exam: Present: normal appearance, PERRL, EOMI Pupils: Present: normal accommodation - ENT ENT exam: Present: normal exam, mucous membranes moist - Expanded ENT Exam Expanded TM/Canal exam: Effusion: Right TM, Left TM Mouth exam: Present: normal external inspection Throat exam: Positive: normal inspection - Neck Neck exam: Present: normal inspection. Absent: meningismus - Respiratory Respiratory exam: Present: normal lung sounds bilaterally. Absent: respiratory distress, wheezes, rales, rhonchi - Cardiovascular Cardiovascular Exam: Present: regular rate, normal rhythm, normal heart sounds - GI/Abdominal GI/Abdominal exam: Present: soft. Absent: distended, tenderness, guarding, rebound - Back Exam Back exam: Present: normal inspection - Neurological Exam Neurological exam: Present: alert, oriented X3, CN II-XII intact, normal gait - Psychiatric Psychiatric exam: Present: normal affect, normal mood - Skin Skin exam: Present: intact ED Course Vital Signs 07/05/20 09:49 Temperature 98.6 F Pulse Rate 79 Respiratory 18 Rate Blood Pressure 123/90 O2 Sat by Pulse 99 Oximetry ED Medical Decision Making - Medical Decision Making 55-year-old male past medical history of childhood asthma, hypertension and tobacco use presents to the ER today with complaints of URI symptoms. Patient states that last night he started with a dry cough and right ear pain. Patient states that he took TheraFlu last night, felt better and went to work but was at work it told him that he appeared groggy and recommend that he come to the ER to get checked out. He states that he did take the TheraFlu late last night and it did make him sleepy but currently he feels fine. He denies any associated chest pain, shortness of breath, wheezing, rhinorrhea, nasal congestion, sore throat, fever or chills. He denies any GI or symptoms. 1116: Patient is well-appearing, nontoxic, is not in any acute pain or respiratory distress. He appears well-hydrated. He is awake alert and oriented x3, neurologically intact with a normal gait in the ER. His vital signs are stable. Patient symptoms may related to URI symptoms/allergies at this time. His history, physical exam and current condition does not suggest severe pneumonia, meningitis, sepsis or any other emergent condition requiring work-up at this time. Discussed suspected diagnosis with patient. He expressed understanding of instructions and agree with plan. Patient stable at time of discharge. Critical care attestation.: If time is entered above; I have spent that time in minutes in the direct care of this critically ill patient, excluding procedure time. ED Disposition Clinical Impression: URI (upper respiratory infection), Allergies Disposition: - TO HOME OR SELFCARE Is pt being admited?: No Does the pt Need Aspirin: No Condition: Stable Instructions: Allergies, Adult, [id number], Upper Respiratory Infection, Adult, [id number] Additional Instructions: You can continue taking [id number] medication including Zyrtec or Claritin or Mere to help with symptoms. If you do take the TheraFlu I recommend that you take it 8 to 12 hours prior to the time that she have to wake up for work. Drink lots of fluids. Follow-up with the primary care doctor listed on your discharge instructions. Return to the ER if your symptoms changes or worsens in any way. Referrals: TAMMIE SANDERS MD [Staff Physician] - 3-5 Days Forms: Work/School Release Form(ED) Time of Disposition: 11:31
== END 2020-07-05 11:37 | disposition home or self-care (01) ==
LOC: ED 09:08
DX: J06.9 Acute upper respiratory infection, unspecified (principal); T78.49XA Other allergy, initial encounter; I10 Essential (primary) hypertension; J45.909 Unspecified asthma, uncomplicated; F17.200 Nicotine dependence, unspecified, uncomplicated; Z79.899 Other long term (current) drug therapy
CPT/HCPCS: 99281

== ENCOUNTER 2020-09-01 17:23 | Emergency (ER) | payer OTHER, SELFPAY ==
--- NOTE | 2020-09-01 19:13 | Emergency Department Report ---
ED Back Pain/Injury HPI - General Chief Complaint: Back Pain/Injury Stated Complaint: BACK PAIN Time Seen by Provider: 09/01/20 19:03 Source: patient Mode of arrival: Ambulatory Limitations: No Limitations - History of Present Illness Initial Comments: Patient is a 55-year-old male presents emergency room complaints of right lower back pain that exacerbated over the last week. He states he has had chronic back pain for several years. 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 He states his pain is mild and he rates it a 4 out of 10. He states he mostly feels like occasional muscle spasms. He states the pain improves with using muscle rubs. He denies any fall or injury. He denies any numbness, weakness, bowel or bladder incontinence, fever, nausea, vomiting, diarrhea, urinary symptoms, urinary retention. PMHx asthma, HTN. No allergies to medications. He denies any drug use or alcohol use. - Related Data Previous Rx's Medication Instructions Recorded Last Taken Type amLODIPine 5 mg PO DAILY #30 tab 06/13/16 Unknown Rx amLODIPine 5 mg PO DAILY #90 tab 08/21/16 Unknown Rx Menthol/Camphor [[place] 1 applicatio TP BID #18 oint...g. 09/01/20 Unknown Rx Ointment] Naproxen [EC-Naprosyn] 500 mg PO BID PRN #14 tablet.dr 09/01/20 Unknown Rx methOCARBAMOL [Robaxin TAB] 500 mg PO BID PRN #14 tab 09/01/20 Unknown Rx Allergies Allergy/AdvReac Type Severity Reaction Status Date / Time No Known Allergies Allergy Verified 09/30/18 11:12 ED Review of Systems ROS: Stated complaint: BACK PAIN Other details as noted in HPI Comment: All other systems reviewed and negative ED Past Medical Hx - Past Medical History Previous Medical History?: Yes Hx Hypertension: Yes Hx Asthma: Yes - Surgical History Past Surgical History?: Yes Additional Surgical History: hernia repair x 2 - Social History Smoking Status: Current Every Day Smoker Substance Use Type: None - Medications Home Medications: Home Medications Medication Instructions Recorded Confirmed Last Taken Type amLODIPine 5 mg PO DAILY #30 tab 06/13/16 Unknown Rx amLODIPine 5 mg PO DAILY #90 tab 08/21/16 Unknown Rx Menthol/Camphor [[place] 1 applicatio TP BID #18 oint...g. 09/01/20 Unknown Rx Ointment] Naproxen [EC-Naprosyn] 500 mg PO BID PRN #14 tablet.dr 09/01/20 Unknown Rx methOCARBAMOL [Robaxin TAB] 500 mg PO BID PRN #14 tab 09/01/20 Unknown Rx ED Physical Exam - General Limitations: No Limitations General appearance: alert, in no apparent distress - Head Head exam: Present: atraumatic, normocephalic - Eye Eye exam: Present: normal appearance - ENT ENT exam: Present: mucous membranes moist - Neck Neck exam: Present: normal inspection, full ROM. Absent: tenderness, meningismus - Respiratory Respiratory exam: Present: normal lung sounds bilaterally. Absent: respiratory distress, wheezes, rales, rhonchi, stridor, chest wall tenderness, accessory muscle use, decreased breath sounds, prolonged expiratory - Cardiovascular Cardiovascular Exam: Present: regular rate, normal rhythm, normal heart sounds. Absent: systolic murmur, diastolic murmur, rubs, gallop - Back Exam Back exam: Present: normal inspection, full ROM, paraspinal tenderness (right sided lumbar paraspinal ttp, no midline C-spine, T-spine or L-spine ttp, no step offs, no deformities ). Absent: vertebral tenderness - Neurological Exam Neurological exam: Present: alert, oriented X3, CN II-XII intact, normal gait. Absent: motor sensory deficit - Psychiatric Psychiatric exam: Present: normal affect, normal mood - Skin Skin exam: Present: warm, dry, intact ED Course Vital Signs 09/01/20 18:58 Temperature 98.7 F Pulse Rate 80 Respiratory 18 Rate Blood Pressure 118/80 O2 Sat by Pulse 98 Oximetry ED Medical Decision Making - Medical Decision Making Patient is a 55-year-old male presents emergency room complaints of right lower back pain that exacerbated over the last week. He states he has had chronic back pain for several years. 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 He states his pain is mild and he rates it a 4 out of 10. He states he mostly feels like occasional muscle spasms. He states the pain improves with using muscle rubs. He denies any fall or injury. He denies any numbness, weakness, bowel or bladder incontinence, fever, nausea, vomiting, diarrhea, urinary symptoms, urinary retention. PMHx asthma, HTN. No allergies to medications. He denies any drug use or alcohol use. Vitals are normal. On exam:right sided lumbar paraspinal ttp, no midline C-spine, T-spine or L-spine ttp, no step offs, no deformities, no focal neuro deficits, ambulatory without difficulty. Patient does not have any red flag warning signs of back pain, no trauma, no unexplained weight loss, no neuro deficits, no fever, no IV drug use, no steroid use, no history of cancer. Patient has no clinical signs of cauda equina or conus medullaris. Symptoms appear most consistent with lumbar strain. Patient given prescription for medications. Advised patient Please use medication as prescribed as needed. May use ice pack, heating pad, rest, and e psom salt bath. Do not drive or operate machinery when taking muscle relaxer Robaxin. Do not use heat or ice while using [place] balm. Follow-up with primary care doctor for reexamination. Return to emergency room for new or worsening symptoms. Critical care attestation.: If time is entered above; I have spent that time in minutes in the direct care of this critically ill patient, excluding procedure time. ED Disposition Clinical Impression: Low back pain Qualifiers: Chronicity: acute Back pain laterality: right Sciatica presence: without sciatica Qualified Code(s): M54.5 - Low back pain Disposition: DC- TO HOME OR SELFCARE Is pt being admited?: No Does the pt Need Aspirin: No Condition: Stable Instructions: Lumbar Strain Additional Instructions: Please use medication as prescribed as needed. May use ice pack, heating pad, rest, and epsom salt bath. Do not drive or operate machinery when taking muscle relaxer Robaxin. Do not use heat or ice while using [place] balm. Follow-up with primary care doctor for reexamination. Return to emergency room for new or worsening symptoms. Prescriptions: Naproxen [EC-Naprosyn] 500 mg PO BID PRN #14 tablet. PRN Reason: pain methOCARBAMOL [Robaxin TAB] 500 mg PO BID PRN #14 tab PRN Reason: muscle spasm/pain Menthol/Camphor [[place]stane [place] Ointment] 1 applicatio TP BID #18 oint...g. Referrals: TAMMIE SANDERS MD [Staff Physician] - 2-3 Days [facility] [Provider Group] - 2-3 Days Forms: Work/School Release Form(ED) Time of Disposition: 19:07 Print Language: BOLIVIAN
[2020-09-01 19:18] VITALS: BP 118/80
== END 2020-09-01 19:30 | disposition home or self-care (01) ==
LOC: ED 17:23
DX: M54.5 Low back pain (principal); I10 Essential (primary) hypertension; J45.909 Unspecified asthma, uncomplicated; F17.200 Nicotine dependence, unspecified, uncomplicated; Z79.899 Other long term (current) drug therapy
CPT/HCPCS: 99282

== ENCOUNTER 2020-10-29 16:28 | Emergency (ER) | payer OTHER ==
[2020-10-29 18:10] VITALS: BP 116/82
[2020-10-29] MEDS ORDERED: KETOROLAC 60 MG/2 ML INJ IM ONE (18:55)
[2020-10-29] MEDS ORDERED: CYCLOBENZAPRINE 10 MG TAB PO ONE (18:55)
[2020-10-29] MEDS ORDERED: dexAMETHasone 20 MG/5 ML VIAL IM ONE (18:55)
--- NOTE | 2020-10-29 19:02 | Emergency Department Report ---
ED Extremity Problem HPI - General Chief complaint: Extremity Problem,Nontraumatic Stated complaint: RT HIP PAIN Time Seen by Provider: 10/29/20 18:55 Source: patient Mode of arrival: Wheelchair Limitations: No Limitations - History of Present Illness Initial comments: Patient is a 55-year-old male presents emergency room complaints of right hip pain that began last night. He denies any fall or injury. He states his pain is increased with ambulation. He states the pain radiates down his right leg. He denies any leg swelling, calf pain, numbness, weakness. He is able to ambulate but has pain with ambulation. 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 Past medical history of hypertension. No allergies to medications. - Related Data Previous Rx's Medication Instructions Recorded Last Taken Type amLODIPine 5 mg PO DAILY #90 tab 08/21/16 Unknown Rx Menthol/Camphor [[place] 1 applicatio TP BID #18 oint...g. 10/29/20 Unknown Rx Ointment] Naproxen [EC-Naprosyn] 500 mg PO BID PRN #14 tablet. 10/29/20 Unknown Rx methOCARBAMOL [Robaxin TAB] 500 mg PO BID PRN #14 tab 10/29/20 Unknown Rx Allergies Allergy/AdvReac Type Severity Reaction Status Date / Time No Known Allergies Allergy Verified 09/30/18 11:12 ED Review of Systems ROS: Stated complaint: RT HIP PAIN Other details as noted in HPI Comment: All other systems reviewed and negative ED Past Medical Hx - Past Medical History Previous Medical History?: Yes Hx Hypertension: Yes Hx Asthma: Yes - Surgical History Past Surgical History?: Yes Additional Surgical History: hernia repair x 2 - Social History Smoking Status: Current Every Day Smoker Substance Use Type: None - Medications Home Medications: Home Medications Medication Instructions Recorded Confirmed Last Taken Type amLODIPine 5 mg PO DAILY #90 tab 08/21/16 Unknown Rx Menthol/Camphor [[place] 1 applicatio TP BID #18 oint...g. 10/29/20 Unknown Rx Ointment] Naproxen [EC-Naprosyn] 500 mg PO BID PRN #14 tablet. 10/29/20 Unknown Rx methOCARBAMOL [Robaxin TAB] 500 mg PO BID PRN #14 tab 10/29/20 Unknown Rx ED Physical Exam - General Limitations: No Limitations General appearance: alert, in no apparent distress - Head Head exam: Present: atraumatic, normocephalic - Eye Eye exam: Present: normal appearance - ENT ENT exam: Present: mucous membranes moist - Respiratory Respiratory exam: Absent: respiratory distress, accessory muscle use - Extremities Exam Extremities exam: Present: other (no bony ttp of the RLE, pain with SLR of the right leg and full flexion of the right hip, no deformity,no skin changes, no calf ttp, no leg edema, neurovasculalry intact with strong distal pulses) - Neurological Exam Neurological exam: Present: alert, oriented X3 - Psychiatric Psychiatric exam: Present: normal affect, normal mood - Skin Skin exam: Present: warm, dry, intact ED Course Vital Signs 10/29/20 18:06 Temperature 98.7 F Pulse Rate 73 Respiratory 16 Rate Blood Pressure 116/82 O2 Sat by Pulse 100 Oximetry ED Medical Decision Making - Medical Decision Making Patient is a 55-year-old male presents emergency room complaints of right hip pain that began last night. He denies any fall or injury. He states his pain is increased with ambulation. He states the pain radiates down his right leg. He denies any leg swelling, calf pain, numbness, weakness. He is able to ambulate but has pain with ambulation. 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 Past medical history of hypertension. No allergies to medications. Vitals are normal. On exam:no bony ttp of the RLE, pain with SLR of the right leg and full flexion of the right hip, no deformity,no skin changes, no calf ttp, no leg edema, neurovasculalry intact with strong distal pulses. Patient has had no acute trauma, he has no clinical signs of DVT or acute arterial occlusion. Patient has no clinical signs of septic joint or cellulitis. Symptoms could be related to sciatica versus bursitis versus arthritis. Patient given medications while in the emergency department with improvement of symptoms. Discussed the impor tance of primary care and orthopedic follow-up. Advised patient Please use medication as prescribed. Follow-up with your primary care doctor. Follow-up with orthopedic doctor. Return to emergency room for any new or worsening symptoms. Critical care attestation.: If time is entered above; I have spent that time in minutes in the direct care of this critically ill patient, excluding procedure time. ED Disposition Clinical Impression: Right hip pain Disposition: HOME / SELF CARE / HOMELESS Is pt being admited?: No Does the pt Need Aspirin: No Condition: Stable Instructions: Hip Pain Additional Instructions: Please use medication as prescribed. Follow-up with your primary care doctor. Follow-up with orthopedic doctor. Return to emergency room for any new or wor sening symptoms. Prescriptions: Naproxen [EC-Naprosyn] 500 mg PO BID PRN #14 tablet.dr PRN Reason: pain methOCARBAMOL [Robaxin TAB] 500 mg PO BID PRN #14 tab PRN Reason: muscle spasm/pain Menthol/Camphor [[place] Ointment] 1 applicatio TP BID #18 oint...g. Referrals: PRIMARY CAREMD [Primary Care Provider] - 3-5 Days TAMMIE SANDERS MD [Staff Physician] - 3-5 Days [facility] [Provider Group] - 3-5 Days TIBURCIO MCCABE MD [Staff Physician] - 3-[address] [facility] [Provider Group] - 3-5 Days Time of Disposition: 20:50 Print Language: PORTUGUESE
== END 2020-10-29 19:35 | disposition home or self-care (01) ==
LOC: ED 16:28
DX: M25.551 Pain in right hip (principal); I10 Essential (primary) hypertension; J45.909 Unspecified asthma, uncomplicated; F17.200 Nicotine dependence, unspecified, uncomplicated; Z79.899 Other long term (current) drug therapy
CPT/HCPCS: 96372; 99282; J1100; J1885

== ENCOUNTER 2021-07-18 09:18 | Emergency (ER) | payer SELFPAY ==
[2021-07-18 09:49] VITALS: BP 137/89
--- NOTE | 2021-07-18 12:08 | Emergency Department Report ---
ED Back Pain/Injury HPI - General Chief Complaint: Extremity Problem,Nontraumatic Stated Complaint: MUSCLE SPASM Time Seen by Provider: 07/18/21 11:29 Source: patient Limitations: No Limitations - History of Present Illness Initial Comments: 56-year-old -[place] male who is known to this ER presents to the emergency room complaining of right lower back pain for the last few days. Patient states he had taken ibuprofen last night. 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 Patient denies any trauma no hematuria no nausea no vomiting no saddle paresthesias no fevers no history of cancer no unintentional weight loss. Complaint: back pain Onset/Timin -: days(s) Similar Symptoms Previously: Yes Place: work Radiation: none Severity: moderate Quality: other (Spasms) Consistency: intermittent Improves With: none Worsens With: none Associated Symptoms: denies other symptoms - Related Data Previous Rx's Medication Instructions Recorded Last Taken Type amLODIPine 5 mg PO DAILY #90 tab 08/21/16 Unknown Rx Menthol/Camphor [[place] 1 applicatio TP BID #18 oint...g. 10/29/20 Unknown Rx Ointment] Naproxen [EC-Naprosyn] 500 mg PO BID PRN #14 tablet. 07/18/21 Unknown Rx methOCARBAMOL [Robaxin TAB] 500 mg PO BID PRN #14 tab 07/18/21 Unknown Rx Allergies Allergy/AdvReac Type Severity Reaction Status Date / Time No Known Allergies Allergy Verified 09/30/18 11:12 ED Review of Systems ROS: Stated complaint: MUSCLE SPASM Other details as noted in HPI Comment: All other systems reviewed and negative ED Past Medical Hx - Past Medical History Hx Hypertension: Yes Hx Asthma: Yes - Surgical History Additional Surgical History: hernia repair x 2 - Social History Smoking Status: Current Every Day Smoker Substance Use Type: None - Medications Home Medications: Home Medications Medication Instructions Recorded Confirmed Last Taken Type amLODIPine 5 mg PO DAILY #90 tab 08/21/16 Unknown Rx Menthol/Camphor [[place] 1 applicatio TP BID #18 oint...g. 10/29/20 Unknown Rx Ointment] Naproxen [EC-Naprosyn] 500 mg PO BID PRN #14 tablet. 07/18/21 Unknown Rx methOCARBAMOL [Robaxin TAB] 500 mg PO BID PRN #14 tab 07/18/21 Unknown Rx ED Physical Exam - General Limitations: No Limitations General appearance: alert, in no apparent distress - Head Head exam: Present: atraumatic, normocephalic - Eye Eye exam: Present: normal appearance - ENT ENT exam: Present: mucous membranes moist - Respiratory Respiratory exam: Absent: respiratory distress - Cardiovascular Cardiovascular Exam: Present: regular rate - Extremities Exam Extremities exam: Present: normal inspection, full ROM - Back Exam Back exam: Present: full ROM, muscle spasm (right). Absent: tenderness - Neurological Exam Neurological exam: Present: alert, oriented X3, normal gait - Psychiatric Psychiatric exam: Present: normal affect, normal mood - Skin Skin exam: Present: warm, dry, intact, normal color. Absent: rash ED Course Vital Signs 07/18/21 09:47 Temperature 98.8 F Pulse Rate 74 Respiratory 18 Rate Blood Pressure 137/89 [Right] O2 Sat by Pulse 98 Oximetry ED Medical Decision Making - Medical Decision Making 56-year-old -[place] male who is known to this ER presents to the emergency room complaining of right lower back pain for the last few days. Patient states he had taken ibuprofen last night. 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 Patient denies any trauma no hematuria no nausea no vomiting no saddle paresthesias no fevers no history of cancer no unintentional weight loss. Patient be discharged home on Robaxin and naproxen. Critical care attestation.: If time is entered above; I have spent that time in minutes in the direct care of this critically ill patient, excluding procedure time. ED Disposition Clinical Impression: Chronic back pain greater than 3 months duration Disposition: 01 HOME / SELF CARE / HOMELESS Is pt being admited?: No Does the pt Need Aspirin: No Condition: Stable Instructions: Chronic Back Pain, [id number] Additional Instructions: Take medication as prescribed. Follow-up with a primary care provider. Prescriptions: Naproxen [EC-Naprosyn] 500 mg PO BID PRN #14 tablet.dr HERNANDEZN Reason: pain methOCARBAMOL [Robaxin TAB] 500 mg PO BID PRN #14 tab PRN Reason: muscle spasm/pain Forms: Work/School Release Form(ED) Time of Disposition: 12:08
== END 2021-07-18 12:14 | disposition left against medical advice (07) ==
LOC: ED 09:18
DX: G89.29 Other chronic pain (principal); M54.50 Low back pain, unspecified; I10 Essential (primary) hypertension; J45.909 Unspecified asthma, uncomplicated; F17.200 Nicotine dependence, unspecified, uncomplicated; Z79.899 Other long term (current) drug therapy
CPT/HCPCS: 99281

== ENCOUNTER 2021-12-09 10:52 | Emergency (ER) | payer SELFPAY ==
[2021-12-09 11:21] VITALS: BP 131/105
--- NOTE | 2021-12-09 12:13 | XRay Report ---
CHEST 2 VIEWS INDICATION / CLINICAL INFORMATION: chest pain. COMPARISON: 06/14/2020 FINDINGS: SUPPORT DEVICES: None. HEART / MEDIASTINUM: No significant abnormality. LUNGS / PLEURA: No significant pulmonary or pleural abnormality. No pneumothorax. ADDITIONAL FINDINGS: No significant additional findings. IMPRESSION: 1. No acute findings. Signer Name: Scott Vega Jr, MD Signed: 12/09/2021 12:09 PM Workstation Name: [id number]
[2021-12-09 12:22] LABS: Basophils % (Auto) 0.1 % (0.0-1.8); Eosinophils % (Auto) 0.3 % (0.0-4.3); Hematocrit 45.4 % (35.5-45.6); Lymphocytes # (Auto) 0.5 K/mm3 (1.2-5.4); Lymphocytes % (Auto) 7.6 % (13.4-35.0); Mean Corpuscular HGB Conc 33 % (32-34); Mean Corpuscular Volume 87 fl (84-94); Monocytes # (Auto) 0.3 K/mm3 (0.0-0.8); Monocytes % (Auto) 4.8 % (0.0-7.3); Platelet Count 196 K/mm3 (140-440); Red Blood Count 5.23 M/mm3 (3.65-5.03)
[2021-12-09 12:41] LABS: Alanine Aminotransferase 16 units/L (7-56); Albumin 4.5 g/dL (3.9-5); BUN/Creatinine Ratio 21; Blood Urea Nitrogen 19 mg/dL (9-20); Calcium 8.6 mg/dL (8.4-10.2); Hemolysis Index 9
== END 2021-12-09 21:34 | disposition left against medical advice (07) ==
LOC: ED 10:52
DX: R51.9 Headache, unspecified (principal); R10.9 Unspecified abdominal pain; Z53.21 Procedure and treatment not carried out due to patient leaving prior to being seen by health care provider
CPT/HCPCS: 36415; 71046; 80053; 84484; 85025; 93005